=== PATIENT | female | born 1980 | race Caucasian/White ===

== ENCOUNTER 2020-03-21 21:54 | Emergency (ER) | payer OTHER ==
[~2020-03-21] VITALS: Ht 182.9 cm; Wt 94.3 kg
[~2020-03-21 21:54] MED LIST: DULO60; GABA300 PO; LEVSOD50 PO; LIDO5TP TOP; MELO7.5 PO; METR500 PO; Norco 5-325 Ta1 EACH PO; Percocet 5-3251 EACH PO; Prednisone20 MG PO; Prozac20 MG; SERT50 PO; TRAM50 PO; TRAZ100 PO; Verotin-Gr Cap1 EACH PO; ZOLP10 PO
[2020-03-21] MEDS ORDERED: CYCL10 PO (23:17)
[2020-03-21] MEDS ORDERED: IBUP600 PO (23:17)
== END 2020-03-21 23:20 | disposition home or self-care (01) ==
LOC: ER 21:54
DX: M54.41 Lumbago with sciatica, right side (principal); F32.9 Major depressive disorder, single episode, unspecified; Z88.5 Allergy status to narcotic agent; Z88.8 Allergy status to other drugs, medicaments and biological substances; Z79.899 Other long term (current) drug therapy; Z87.891 Personal history of nicotine dependence
CPT/HCPCS: 96372; 99283-25; J1100; J1885

== ENCOUNTER 2022-12-03 20:10 | Emergency (ER) | payer OTHER ==
[~2022-12-03] VITALS: Ht 182.9 cm; Wt 84.4 kg
[~2022-12-03 20:10] MED LIST changes: +CYCL10 PO; +IBUP600 PO; +METPRE4DP PO
== END 2022-12-04 00:30 | disposition home or self-care (01) ==
LOC: ER 20:10
DX: M54.50 Low back pain, unspecified (principal); G89.29 Other chronic pain; E03.9 Hypothyroidism, unspecified; Z79.52 Long term (current) use of systemic steroids; Z79.890 Hormone replacement therapy; Z79.899 Other long term (current) drug therapy; Z88.5 Allergy status to narcotic agent; Z88.8 Allergy status to other drugs, medicaments and biological substances; Z87.891 Personal history of nicotine dependence
CPT/HCPCS: 96372; 99283-25; A9270; J1100; J1885